=== PATIENT | male | born 1950 ===

== ENCOUNTER 2021-10-13 10:12 | Day surgery (SDC) | payer MEDICARE ==
[2021-10-13] VITALS (8 sets, daily range): BP systolic 127–156; BP diastolic 63–87; PULSE 57–71; TEMP 97.8
[~2021-10-13] VITALS: Ht 175.3 cm; Wt 97.0 kg
[2021-10-13 11:21] LABS: HEMATOCRIT 42.1 % (42.0-52.0); HEMOGLOBIN 14.7 g/dl (13.5-18.0); MEAN CELL VOLUME 95 fl (80.0-100.0); MEAN CORPUSCULAR HEMOGLOBIN 33 pg (27.0-31.0); MEAN CORPUSCULAR HGB CONC 35 g/dl (33.0-37.0); MEAN PLATELET VOLUME 8.8 fl (7.4-10.4); PLATELET COUNT 167 K/mm3 (130-400); RED BLOOD COUNT 4.44 M/mm3 (4.20-5.60); REDCELL DISTRIBUTION WIDTH-CV 12.5 % (11.5-14.5)
[2021-10-13] MEDS ORDERED: ASPIRIN E.C. 8181 MG PO (11:29)
[2021-10-13] MEDS ORDERED: FOLIC ACID 11 MG/TA1 PO (11:30)
[2021-10-13] MEDS ORDERED: ZYRTEC 10MG10 MG PO (11:31)
[2021-10-13] MEDS ORDERED: GLUCOSAMINE & C1 CA1 PO (11:32)
[2021-10-13] MEDS ORDERED: METHOTREXA2.5 MG/TAB PO (11:33)
[2021-10-13] MEDS ORDERED: MULTI-VITAMIN W1 TA1 PO (11:34)
[2021-10-13] MEDS ORDERED: NAPROSYN 2250 MG/TAB PO (11:35)
[2021-10-13] MEDS ORDERED: CRESTOR 10MG10 MG PO (11:36)
[2021-10-13] MEDS ORDERED: PREVACID 15MG15 M1 PO (11:36)
[2021-10-13] MEDS ORDERED: AZULFIDINE500 MG/TAB PO (11:37)
[2021-10-13] MEDS ORDERED: FLOMAX 0.40.4 MG/CAP PO (11:38)
[2021-10-13 11:39] LABS: CALCIUM 9.9 mg/dL (8.4-10.2); CREATININE, serum 0.95 mg/dL (0.72-1.25); POTASSIUM 4.2 mmol/L (3.5-4.5)
--- NOTE | 2021-10-13 14:45 | NUR ---
pt returned from cath lab nurse via bed, in room. Alert and orientated x3. No c/o pain or sob. call light in reach, takes water and coffee, meal ordered, reviewed precautions of right wrist.
[2021-10-13] MEDS ORDERED: NORVASC 5MG5 MG/TAB PO (15:17)
--- NOTE | 2021-10-13 15:30 | NUR ---
pt sits up in bed, eats lunch, no c/o
[2021-10-13 16:14] LABS: ALBUMIN 4.4 gm/dL (3.4-4.8); TOTAL PROTEIN 6.8 gm/dL (6.2-8.1)
--- NOTE | 2021-10-13 16:45 | NUR ---
released air from band 2cc at a time over 20 min with no bleeding or swelling. bandaid over site with coban for support. reviewed pt inst. and activity on next appt, new medcation and handout. Also reviewed activity and precautions for right wrist with verbal understanding. iv d'cd intact.
--- NOTE | 2021-10-13 17:00 | NUR ---
pt up in room dressed and discharged via w/c to car
== END 2021-10-13 17:00 | disposition home or self-care (01) ==
LOC: COL.CAR 10:12
PROVIDERS: Internal Medicine Cardiovascular Disease
DX: I25.10 Atherosclerotic heart disease of native coronary artery without angina pectoris (principal); R94.39 Abnormal result of other cardiovascular function study; R53.83 Other fatigue; I95.9 Hypotension, unspecified; I51.7 Cardiomegaly; M19.90 Unspecified osteoarthritis, unspecified site; J45.909 Unspecified asthma, uncomplicated; K21.9 Gastro-esophageal reflux disease without esophagitis; E78.2 Mixed hyperlipidemia; E78.5 Hyperlipidemia, unspecified; Z79.82 Long term (current) use of aspirin; Z79.899 Other long term (current) drug therapy; Z79.891 Long term (current) use of opiate analgesic
CPT/HCPCS: C1769; C1887; J1644; J2250; J3010; Q9967